=== PATIENT | female | born 1990 | race Caucasian/White ===

== ENCOUNTER 2019-08-25 14:06 | Emergency (ER) | payer OTHER ==
[~2019-08-25] VITALS: Ht 165.1 cm; Wt 65.0 kg
[2019-08-25 14:35] VITALS: BP 124/75
[2019-08-25] MEDS ORDERED: KETOROLAC 30 MG/1 ML IM ONE (15:30)
[2019-08-25] MEDS ORDERED: METHOCARBAMOL 750 MG TABLET PO ONE (15:30)
[2019-08-25] MEDS ORDERED: KETOROLAC 30 MG/1 ML ONE (15:35)
[2019-08-25] MEDS ORDERED: METHOCARBAMOL 750 MG TABLET ONE ×2 (15:35→15:36)
[2019-08-25] MEDS ORDERED: HYDROmorphone 2 MG/ML, 1ML ONE (15:45)
[2019-08-25] MEDS ORDERED: HYDROmorphone 1 MG/ML, 1ML INJ IM ONE (16:00)
[2019-08-25 17:24] LABS: HCG UR SG 1.035 (1.003-1.030); MICROSCOPIC NOT IND
[2019-08-25 17:27] LABS: CULTURE INDICATED? NO
[2019-08-25] MEDS ORDERED: DEXAMETHASONE 4 MG TABLET PO ONE (18:00)
[2019-08-25] MEDS ORDERED: HYDROcodone/APAP 10/325 MG TABLET PO ONE (18:00)
[2019-08-25] MEDS ORDERED: HYDROcodone/APAP 10/325 MG TABLET ONE (18:00)
[2019-08-25] MEDS ORDERED: DEXAMETHASONE 4 MG TABLET ONE (18:00)
== END 2019-08-25 18:08 | disposition home or self-care (01) ==
LOC: ED 17:45
DX: M54.6 Pain in thoracic spine (principal)
CPT/HCPCS: 72072; 72110; 81003; 81025; 96372; 99284; J1170; J1885

== ENCOUNTER 2021-02-13 07:41 | Emergency (ER) | payer MEDICAID ==
[~2021-02-13] VITALS: Ht 175.3 cm; Wt 72.0 kg
[2021-02-13 07:46] VITALS: BP 125/78
--- NOTE | 2021-02-13 08:15 | NUR ---
PA AT BS
[2021-02-13] MEDS ORDERED: ONDANSETRON ODT 8 MG ONE (08:18)
[2021-02-13] MEDS ORDERED: OXYcodone/APAP 5/325MG TABLET ONE (08:24)
--- NOTE | 2021-02-13 08:29 | NUR ---
PT MEDICATED PER EMAR. WAITING REASSESSMENT BEFORE DC
[2021-02-13] MEDS ORDERED: ONDANSETRON ODT 8 MG PO ONE (08:30)
[2021-02-13] MEDS ORDERED: OXYcodone/APAP 5/325MG TABLET PO ONE (08:30)
--- NOTE | 2021-02-13 08:39 | NUR ---
Manisha given discharge instructions and they have confirmed that they understand the instructions. Patient ambulatory with steady gait, is driving her home.
== END 2021-02-13 08:43 | disposition home or self-care (01) ==
LOC: ED 08:30
DX: K02.9 Dental caries, unspecified (principal); H92.02 Otalgia, left ear; R11.2 Nausea with vomiting, unspecified; Z88.1 Allergy status to other antibiotic agents; Z90.89 Acquired absence of other organs
CPT/HCPCS: 99283; Q0162